=== PATIENT | female | born 1975 | race Caucasian/White ===

== ENCOUNTER 2023-09-20 10:07 | Outpatient (CLI) | payer MEDICAID, SELFPAY | END 2023-09-20 10:08 | disposition home or self-care (01) | PROVIDERS: PCP Family Medicine; Visit Provider Family Medicine | DX: I46.9 Cardiac arrest, cause unspecified (principal); T40.411A Poisoning by fentanyl or fentanyl analogs, accidental (unintentional), initial encounter; Y92.009 Unspecified place in unspecified non-institutional (private) residence as the place of occurrence of the external cause | CPT/HCPCS: A0425; A0433 ==

== ENCOUNTER 2023-09-29 18:28 | Outpatient (CLI) | payer MEDICAID, SELFPAY | END 2023-09-29 18:29 | disposition home or self-care (01) | PROVIDERS: PCP Family Medicine; Visit Provider Emergency Medicine | DX: R41.82 Altered mental status, unspecified (principal) ==

== ENCOUNTER 2023-10-07 15:35 | Outpatient (CLI) | payer MEDICAID, SELFPAY | END 2023-10-07 15:36 | disposition home or self-care (01) | LOC: AMB 10-12 11:18 | PROVIDERS: PCP Family Medicine; Visit Provider Family Medicine | DX: S49.82XA Other specified injuries of left shoulder and upper arm, initial encounter (principal); Y04.0XXA Assault by unarmed brawl or fight, initial encounter; Y92.009 Unspecified place in unspecified non-institutional (private) residence as the place of occurrence of the external cause | CPT/HCPCS: A0425; A0429 ==